=== PATIENT | male | born 1950 | race African-American/Black ===

== ENCOUNTER 2019-11-18 22:50 | Emergency (ER) | payer SELFPAY ==
[~2019-11-18] VITALS: Ht 185.4 cm; Wt 65.0 kg
[2019-11-18 22:59] VITALS: BP 140/92
--- NOTE | 2019-11-19 00:05 | NUR ---
PATIENT CLEARED FOR DISCHARGE. GIVEN CAB VOUCHER TO ENSURE PATIENT WAS SAFELY RETURNED TO THE JAIL. PATIENT STATED THAT HE DID NOT WANT TO GO BACK TO THE STORES WHERE [place] WAS. PATIENT WAS GIVEN THE OPTION TO WHERE HIS CAB VOUCHER WOULD TAKE HIM. PATIENT AIDED WITH ASSISTANCE TO DISCHARGE DESK. NO NOTED ACUTE DISTRESS. PATIENT AMBULATORY WITHOUT COMPLICATIONS.
== END 2019-11-18 23:58 ==
LOC: ED 23:15
DX: F41.1 Generalized anxiety disorder (principal); I48.91 Unspecified atrial fibrillation
CPT/HCPCS: 99283

== ENCOUNTER 2020-06-15 17:45 | Emergency (ER) | payer MEDICARE ==
[~2020-06-15] VITALS: Ht 185.4 cm; Wt 65.9 kg
[2020-06-15] MEDS ORDERED: SODIUM CHLORIDE 0.9% 1,000ML IVBOLUS ONE (18:30)
[2020-06-15] MEDS ORDERED: SODIUM CHLORIDE FLUSH 10ML SYR IVF ONE (18:30)
--- NOTE | 2020-06-15 18:37 | NUR ---
PT WITH C/O DIZZINESS X 3DAYS INCREASING TODAY. PT DENIES SOB/CP. NO SICK CONTACTS. PT TO ALL MONITORS AT THIS TIME. ORDERS FROM [employer]. TECH IN TO OBTAIN ORTHOSTATICS, PIV START
--- NOTE | 2020-06-15 18:49 | NUR ---
report recieved from [facility]
[2020-06-15 18:53] LABS: BASOPHILS % (AUTO) 0 % (0-1); EOSINOPHILS % (AUTO) 1 % (1-7); LYMPHOCYTES % (AUTO) 18 % (22-44); MEAN CORPUSCULAR HGB CONC 33.3 g/dL (33.2-36.2); MEAN PLATELET VOLUME 9.1 fL (7.4-10.4); MONOCYTES % (AUTO) 13 % (2-9); NEUTROPHILS % (AUTO) 67 % (42-75); PLATELET COUNT 160 x10^3/uL (130-400); RED BLOOD COUNT 3.84 x10^6/uL (4.38-5.82); RED CELL DISTRIBUTION WIDTH 14.4 % (9.4-14.8)
[2020-06-15 18:56] LABS: MD NO
[2020-06-15 19:02] LABS: ALBUMIN 3.6 g/dL (3.4-5.0); ANION GAP 5 mmol/L (5-15); CHLORIDE 103 mmol/L (98-107)
[2020-06-15 19:09] LABS: ALANINE AMINOTRANSFERASE 45 U/L (12-78); ALKALINE PHOSPHATASE 83 U/L (45-117); BILIRUBIN,TOTAL 1.5 mg/dL (0.2-1.0); CREATININE 1.36 mg/dL (0.7-1.3); TOTAL PROTEIN 8.5 g/dL (6.4-8.2)
--- NOTE | 2020-06-15 19:11 | NUR ---
ortho HR: supine: [address]
--- NOTE | 2020-06-15 19:18 | NUR ---
DIFFICULTY GETTING PIV REN, SPOKE WITH , STAKES OK TO HOLD OFF FOR NOW. WILL REASSESS
--- NOTE | 2020-06-15 20:01 | NUR ---
REPEAT EKG TAKEN, PT WALKING AROUND ROOM WITHOUT DIFFICULTY. ERP AWARE OF ORTHOS AND EKG. AWIAITNG FURTHER ORDERS
[2020-06-15 20:25] VITALS: BP 133/82
== END 2020-06-15 20:50 | disposition home or self-care (01) ==
LOC: ED 19:25
DX: R55 Syncope and collapse (principal); R42 Dizziness and giddiness; R53.1 Weakness; R11.0 Nausea; I10 Essential (primary) hypertension; I48.91 Unspecified atrial fibrillation
CPT/HCPCS: 36415; 71045; 80053; 83880; 84484; 85025; 93005; 99285